=== PATIENT | male | born 1995 ===

== ENCOUNTER 2017-09-11 09:56 | Emergency (ER) | payer SELFPAY ==
[2017-09-11] MEDS ORDERED: Ketorolac INJ* 60 MG/2 ML VIAL IM ONE (10:15)
--- NOTE | 2017-09-11 10:38 | RAD ---
INDICATION: Left great toe injury. TECHNIQUE: 3 views of the left great toe were obtained. FINDINGS: There is dislocation of the interphalangeal joint with the distal phalanx displaced posterior one shaft diameter is slightly overriding the proximal phalanx. No fracture is seen. IMPRESSION: DISLOCATION OF THE INTERPHALANGEAL JOINT.
--- NOTE | 2017-09-11 10:39 | ED ---
Lower Extremity - HPI Summary HPI Summary: 22 male presents to ED with complaints of left great toe pain and injury that occurred just [employer]. Patient states he was playing [place] [employer] [place], landed and injured his left great toe during his game against [place]. Admits to swelling and obvious deformity. No other complaints at this time. No other injuries. Is in significant pain. Has not taken any medications. No PMHx. States his dislocated and did the same thing to his pinky in the past. - History of Current Complaint Chief Complaint: EDGeneral Stated Complaint: TOE INJURY Time Seen by Provider: 09/11/17 10:10 Hx Obtained From: Patient Mechanism Of Injury: Blunt Trauma, Twisted Onset of Pain: Immediate, Post Accident Onset/Duration: Hours Severity Initially: Severe Severity Currently: Severe Pain Intensity: 8 Pain Scale Used: 0-10 Numeric Timing: Constant Character Of Pain: Sharp, Aching, Throbbing Associated Signs And Symptoms: Positive: Swelling Aggravating Factor(s): Standing, Movement Alleviating Factor(s): Rest, Nothing Able to Bear Weight: Yes - if bearing weight on left heel - Allergies/Home Medications Allergies/Adverse Reactions: Allergies Allergy/AdvReac Type Severity Reaction Status Date / Time No Known Allergies Allergy Verified 09/11/17 10:32 PMH/Surg Hx/FS Hx/Imm Hx Endocrine/Hematology History: Denies: Hx Diabetes Cardiovascular History: Denies: Hx Hypertension Respiratory History: Denies: Hx Asthma - Surgical History Surgery Procedure, Year, and Place: n/a - Immunization History Immunizations Up to Date: Yes Infectious Disease History: No Infectious Disease History: Denies: Traveled Outside the [place] in Last 30 Days - Family History Known Family History: Positive: None - Social History Alcohol Use: Occasionally Substance Use Type: Reports: None Smoking Status (MU): Never Smoked Tobacco Review of Systems Constitutional: Negative Cardiovascular: Negative Respiratory: Negative Positive: Arthralgia, Myalgia, Decreased ROM, Edema - obvious deformity left great toe Neurological: Negative All Other Systems Reviewed And Are Negative: Yes Physical Exam Triage Information Reviewed: Yes Vital Signs On Initial Exam: Initial Vitals Temp Pulse Resp BP Pulse Ox 98.7 F 81 20 115/71 98 09/11/17 09:59 09/11/17 09:59 09/11/17 09:59 09/11/17 09:59 09/11/17 09:59 Vital Signs Reviewed: Yes Appearance: Positive: Well-Appearing, Well-Nourished, Pain Distress - moderate Skin: Positive: Warm, Skin Color Reflects Adequate Perfusion, Dry. Negative: Numb, Cyanosis @, Erythema @ Head/Face: Positive: Normal Head/Face Inspection Eyes: Positive: Conjunctiva Clear ENT: Positive: Hearing grossly normal Neck: Positive: Supple, Nontender Respiratory/Lung Sounds: Positive: Clear to Auscultation, Breath Sounds Present. Negative: Decreased Breath Sounds, Rales, Rhonchi, Wheezes Cardiovascular: Positive: Normal, RRR, Pulses are Symmetrical in both Upper and Lower Extremities - 2+ pedal b/l Abdomen Description: Positive: Nontender, Soft Bowel Sounds: Positive: Present Musculoskeletal: Positive: Limited @ - at left great toe due to injury, obvious deformity, Interruption @ - step off left great toe, obvious deformity noted distal phalanx, Pain @ - left great toe, Edema Left - great toe, Other - rest of MSK exam normal Neurological: Positive: Normal, Sensory/Motor Intact - sensation intact, Alert, Oriented to Person Place, Time, Reflexes Intact, NV Bundle Intact Distally Procedures - Joint Reduction Joint Reduction Site: other - left great toe Specify Other Joint Reduced: left great toe Conscious Sedation: No Reduction Attempts: 1 Pre-Procedure NV Exam: Yes Post Joint Reduction Film: joint reduced Diagnostics - Vital Signs Vital Signs Temp Pulse Resp BP Pulse Ox 09/11/17 09:59 98.7 F 81 20 115/71 98 - Laboratory Lab Statement: Any lab studies that have been ordered have been reviewed, and results considered in the medical decision making process. - Radiology left great toe Xray Interpretation: Positive (See Comments) Radiology Interpretation Completed By: Radiologist - There is dislocation of the interphalangeal joint with the distal phalanx displaced posterior one shaft diameter is slightly overriding the proximal phalanx. No fracture is seen. post reduction, left toe Xray Interpretation: Positive (See Comments) - 1. STATUS POST EXTERNAL REDUCTION THE BONES ARE IN NORMAL ALIGNMENT. 2. SMALL CHIP FRACTURES. Radiology Interpretation Completed By: Radiologist Lower Extremity Course/Dx - Course Course Of Treatment: xray obtained showing dislocation of interphalangeal joint of left great toe. noted on PE as well. given toradol for pain and inflammation. digital block preformed with 1% lidocaine without complication. Sterile procedure was used. Joint reduced with out complication. Post reduction xray obtained. Given pain mangement to take at home. Follow up with PCP. Aware of worsening signs and symptoms. Crutches also give as toe is sprained, do not bear weight until symptoms improve. - Diagnoses Differential Diagnosis/HQI/PQRI: Positive: Contusion, Dislocation, Fracture ( Closed), Sprain, Strain Provider Diagnoses: Traumatic dislocation of left great toe Discharge - Discharge Plan Condition: Improved Disposition: HOME Referrals: No Primary Care Phys,NOPCP [Primary Care Provider] - [facility] [Outside] Additional Instructions: Use crutches to avoid bearing weight until symptoms improve. Rest, ice and elevate multiple times daily. Take pain medication as directed, only as needed for pain. Supplement with ibuprofen however, do not take any of this until tomorrow. You already received a 12-24 hours worth of anti-inflammatory while in ER. Follow up with your primary care provider to re-check before returning to sports as you do have small chip fractures. Refrain from physical activity.
[2017-09-11] MEDS ORDERED: Lidocaine 1%* 5 ML VIAL ONE (11:22)
--- NOTE | 2017-09-11 11:58 | RAD ---
INDICATION: Left great toe dislocation status post external reduction. TECHNIQUE: 3 views of the left great toe were obtained. FINDINGS: The bones are normal alignment. There has been interval reduction of the previously noted dislocated interphalangeal joint. There are small chip fractures which appear to arise from the lateral base of the distal phalanx and medial distal aspect of the proximal phalanx. IMPRESSION: 1. STATUS POST EXTERNAL REDUCTION THE BONES ARE IN NORMAL ALIGNMENT. 2. SMALL CHIP FRACTURES.
[2017-09-11] MEDS ORDERED: HYDROcodone/ACETAMIN 5-325 MG* 1 TAB PO ONE (12:20)
[2017-09-11 12:42] VITALS: BP 132/66
== END 2017-09-11 12:41 | disposition home or self-care (01) ==
LOC: ED 09:56
DX: S93.105A Unspecified dislocation of left toe(s), initial encounter (principal); S92.402A Displaced unspecified fracture of left great toe, initial encounter for closed fracture; X58.XXXA Exposure to other specified factors, initial encounter; Y93.74 Activity, frisbee; Y92.9 Unspecified place or not applicable
CPT/HCPCS: 28630; 96372; 99282; J1885